=== PATIENT | female | born 1950 ===

== ENCOUNTER 2017-08-06 09:12 | Emergency (ER) | payer MEDICARE, MEDICAID ==
[2017-08-06 09:18] VITALS: RESP 18; TEMP 97.7
[2017-08-06] MEDS ORDERED: Lidocaine 5% Patch TD STA (09:49)
[2017-08-06] MEDS ORDERED: Acetaminophen-Codeine 300/30 mg Tab PO STA (09:49)
--- NOTE | 2017-08-06 09:55 | C.PDOC ---
History Of Present Illness 66 yr old female presents to the ER with complaints of upper back pain for the past 6 days. Patient reports she is s/p fall 6 days ago, states she fell off a table while standing on it with possible direct injury. States initially she was evaluated at [facility] and was diagnosed with left foot fracture and discharged home with Naproxen prescription but never filled it out. Patient states she has been taking Naproxen but with limited relief. Patient states initially she had no back pain but developed it later and now is worse with movement. Patient has a appointment with PMD next week. Patient denies chest pain, SOB, nausea, vomiting, abdominal pain, constipation, dysuria, incontinence, neck pain , headache, weakness or numbness. VIA TRANS CO UPPER BACK PAIN X 6 DAYS. S/P FALL 6 DAYS AGO FELL OFF TABLE WHILE STANDING ON IT. ?DIRECT INJURY. INITIAL EVAL @ [facility], DX L FOOT FX. DC W NAPROXYN RX BUT NEVER FILLED. PS HAS BEEN TAKING 'S NAPROXYN BUT W LIMITED RELIEF. PS INITIALLY HAD NO BACK PAIN BUT DEVELOPED DAYS LATER. WORSE W MOVEMENT. PENDING PMD EVAL NEXT WEEK EXAM MILD DIST NONTOXIC HEENT ATRAUM NECK NO CSPINE TEND AROM WO DIFF. PARAVERT SPASM W LOCAL TEND. ATRAUM BACK +B/L UPPER BACK SPASM W LOCAL TEND, REPRODUC PAIN. NO SPINAL TEND. NO SWELL , DEFORM SKIN INTACT NEURO INTACT EXT L FOOT IN POST OP SHOE. Time Seen by Provider: 08/06/17 09:38 Chief Complaint (Nursing): Back Pain History Per: Patient History/Exam Limitations: no limitations Onset/Duration Of Symptoms: Days (6) Current Symptoms Are (Timing): Still Present Past Medical History Reviewed: Historical Data, Nursing Documentation, Vital Signs Vital Signs: Last Vital Signs Temp 97.7 F 08/06/17 09:15 Pulse 81 08/06/17 10:28 Resp 18 08/06/17 10:28 BP 137/78 08/06/17 10:28 Pulse Ox 98 08/06/17 10:28 - Medical History PMH: Hypercholesterolemia - [facility] CONTR CEREBR ARTERIOGRAM (11/22/04) CONTRAST AORTOGRAM (11/22/04) Family History: States: No Known Family Hx - Social History Hx Alcohol Use: No Hx Substance Use: No Review Of Systems Except As Marked, All Systems Reviewed And Found Negative. Cardiovascular: Negative for: Chest Pain Respiratory: Negative for: Shortness of Breath Gastrointestinal: Negative for: Nausea, Vomiting, Abdominal Pain, Constipation Genitourinary: Negative for: Dysuria, Incontinence Musculoskeletal: Positive for: Back Pain (Upper back pain). Negative for: Neck Pain Neurological: Negative for: Weakness, Numbness, Headache Physical Exam - Physical Exam Appears: Non-toxic, In Acute Distress (Mild) Skin: Warm, Dry, No Rash Head: Atraumatic, Normacephalic Eye(s): bilateral: Normal Inspection, PERRL, EOMI Oral Mucosa: Moist Neck: Normal ROM (w/o difficulty.), Supple, Other ((+) Paravert spasm with local tenderness. (-) No C-Spine tenderness. ) Cardiovascular: Rhythm Regular, No Murmur Respiratory: Normal Breath Sounds, No Rales, No Rhonchi, No Stridor, No Wheezing Back: Other (Normal ROM. Bilateral upper back spasm with local tendenress, reproducible pain. No spinal tendenress. No swelling. No deformity. ) Extremity: No Calf Tenderness, Other (Left foot in post op shoe.) Neurological/Psych: Oriented x3, Normal Speech, Normal Motor, Normal Sensation ED Course And Treatment O2 Sat by Pulse Oximetry: 99 (RA) Pulse Ox Interpretation: Normal Medical Decision Making Medical Decision Making: PLAN: * Lidoderm TD * Flexeril PO * Tylenol PO * Tylenol/Codeine PO Disposition Counseled Patient/Family Regarding: Diagnosis, Need For Followup, Rx Given - Disposition Referrals: YOUR,PMD [Other] Disposition: HOME/ ROUTINE Disposition Time: 09:52 Condition: IMPROVED Prescriptions: Acetaminophen [Tylenol Extra Strength] 2 tab PO Q6 #30 tablet Cyclobenzaprine [Flexeril] 10 mg PO TID #15 tab Lidocaine 5% [Lidoderm] 1 ea TD PRN PRN #10 patch PRN Reason: Pain, Moderate (4-7) Instructions: Muscle Spasm (ED) Forms: [facility] (Romanian) Print Language: KYRGYZ - Clinical Impression Clinical Impression: Upper back pain - Scribe Statement The provider has reviewed the documentation as recorded by the Yossiibshayna Robins Provider Attestation: All medical record entries made by the Scribe were at my direction and personally dictated by me. I have reviewed the chart and agree that the record accurately reflects my personal performance of the history, physical exam, medical decision making, and the department course for this patient. I have also personally directed, reviewed, and agree with the discharge instructions and disposition.
[2017-08-06] MEDS ORDERED: Lidocaine 5% Patch TD ONE (09:58)
[2017-08-06] MEDS ORDERED: Acetaminophen-Codeine 300/30 mg Tab PO ONE (09:58)
[2017-08-06 10:29] VITALS: BP 137/78; PULSE 81
[2017-08-06 10:40] VITALS: O2SAT 99
== END 2017-08-06 10:32 | disposition home or self-care (01) ==
LOC: C.ER 09:12
DX: M54.89 Other dorsalgia (principal)

== ENCOUNTER 2017-10-02 07:14 | Day surgery (SDC) | payer MEDICARE, MEDICAID ==
[2017-10-02 07:39] VITALS: BMI 23.0
[2017-10-02] MEDS ORDERED: Propofol 10 mg/ml Inj (20 ML) ONE ×2 (08:37)
[2017-10-02] MEDS ORDERED: Lactated Ringer's 500 ML IV SCH (08:45)
[2017-10-02] MEDS ORDERED: Simethicone 40 mg/0.6 ml Liquid (30 ml) ONE (09:04)
[2017-10-02 09:26] VITALS: TEMP 98; O2SAT 100
[2017-10-02 09:51] VITALS: RESP 11
[2017-10-02 11:23] VITALS: BP 129/54; PULSE 64
== END 2017-10-02 11:05 | disposition home or self-care (01) ==
LOC: C.ENDO 07:14
PROVIDERS: ATTEND Internal Medicine
DX: Z12.11 Encounter for screening for malignant neoplasm of colon (principal); D12.3 Benign neoplasm of transverse colon; D12.5 Benign neoplasm of sigmoid colon; Z86.73 Personal history of transient ischemic attack (TIA), and cerebral infarction without residual deficits; Z79.899 Other long term (current) drug therapy; K64.8 Other hemorrhoids
CPT/HCPCS: 45380; 88305; J2704; J7120